=== PATIENT | female | born 1965 | race Caucasian/White ===

== ENCOUNTER → 2017-04-30 | Outpatient (CLI) | payer OTHER ==
--- NOTE | 2017-04-30 11:44 | XR ---
EXAMINATION TYPE: XR shoulder complete LT DATE OF EXAM: 04/30/2017 COMPARISON: NONE HISTORY: Pain TECHNIQUE: Three views are submitted. FINDINGS: The osseous structures are intact. There is no acute fracture or dislocation. Mild hypertrophic goncalves ge of the AC joint. AC joint distance maintained. Previous surgery involving the vertebral column. Ca lcification along the superior margin of the humeral head. IMPRESSION: 1. Mild hypertrophy of the AC joint. Correlate with MRI as clinically warranted. 2. Calcification along the head of the humerus compatible with calcific tendinosis.
== END | disposition home or self-care (01) ==
LOC: RADXRYALE 11:25
PROVIDERS: ATTEND Family Medicine
DX: M89.311 Hypertrophy of bone, right shoulder (principal)

== ENCOUNTER → 2017-11-29 | Outpatient (CLI) | payer OTHER ==
--- NOTE | 2017-11-29 14:50 | P.STRESS ---
- Stress Test Note Stress Test Results/Findings: Exam Performed: stress echo exercise Exam Date: 11/29/17 Reason for Exam: cp Height: 5 ft 4 in Weight: 54.431 kg Protocol: STRESS ECHO Stage: III Duration of Exercise: 9.38 Resting Heart Rate: 77 Resting Blood Pressure: 103/57 Maximum Achieved Heart Rate: 152 Maximum Achieved Blood Pressure: 103/57 85% PMHR: 91 100% PMHR: 166 METS: 10.7 Technologist Comment: Stress Test Results/Findings: This is a 52-year-old female with history of chest pain, palpitations, and also smoking history, being evaluated for symptoms of shortness of breath. Baseline EKG showed sinus rhythm with a normal ME interval and QRS duration with occasional APCs. Blood pressure at rest is 130/57 with pulse rate of 77. Patient walked on the Jevon protocol for 9 minutes and 38 seconds achieving a maximal heart rate of 152 with blood pressure 164/70. EKGs taken during and after exercise did not reveal any significant changes from her baseline. Occasional PVCs were noted. Echo data: Baseline echo images showed normal wall motion and thickening. Exercise echo images showed augmentation of wall motion and thickening in all the segments. Final impression: #1. Negative stress test #2. Negative stress echo.
== END | disposition home or self-care (01) ==
LOC: RADNMMAIN 09:51
PROVIDERS: ATTEND Family Medicine
DX: R07.89 Other chest pain (principal)
CPT/HCPCS: 93351

== ENCOUNTER → 2020-08-09 | Outpatient (CLI) | payer OTHER ==
--- NOTE | 2020-08-09 15:23 | XR ---
Lumbosacral spine HISTORY: Low back pain 5 views of the lumbosacral spine correlated to prior exam 11/04/2015 Postop changes are again noted status post left lateral fusion with multilevel intervertebral block s pacing as on prior exam. Thoracic scoliosis changes also suspected. Bone mineralization is reduced. S clerosis present in the posterior elements. IMPRESSION: Stable fusion changes. Thoracic scoliosis, facet arthropathy.
== END | disposition home or self-care (01) ==
LOC: RADXRYALE 11:26
PROVIDERS: ATTEND Family Medicine
DX: M47.817 Spondylosis without myelopathy or radiculopathy, lumbosacral region (principal); Z98.1 Arthrodesis status
CPT/HCPCS: 72110